=== PATIENT | male | born 1990 | race Hispanic/Latino ===

== ENCOUNTER 2020-08-25 15:41 | Emergency (ER) | payer OTHER ==
--- NOTE | 2020-08-25 17:17 | EDPHYS ---
Physician Documentation [facility] Name: Erick Lange Age: 30 yrs Sex: Male : 1990 Arrival Date: 08/25/2020 Time: 15:42 Bed 20 Private MD: ED Physician Kvng Purcell HPI: 08/25 17:43 This 30 yrs old Male presents to ER via Wheelchair with complaints of Knee tw4 Injury. 17:43 The patient presents with decreased range of motion, a deformity, an injury. The tw4 complaints affect the right knee. Context: The problem was sustained at home. Onset: The symptoms/episode began/occurred today. Modifying factors: The symptoms are alleviated by nothing. the symptoms are aggravated by nothing. The patient has not experienced similar symptoms in the past. Historical: - Allergies: 16:05 No Known Allergies; ca1 - Home Meds: 16:05 None [Active]; ca1 - PMHx: 16:05 None; ca1 - PSHx: 16:05 None; ca1 - Immunization history:: Client reports receiving the 2nd dose of the Covid vaccine, Client reports receiving the 1st dose of the Covid vaccine, Flu vaccine is up to date. - Social history:: Smoking status: Patient denies any tobacco usage or history of. ROS: 17:43 Constitutional: Negative for fever, chills, and weight loss, Eyes: Negative for injury, tw4 pain, redness, and discharge, Cardiovascular: Negative for chest pain, palpitations, and edema, Respiratory: Negative for shortness of breath, cough, wheezing, and pleuritic chest pain, Abdomen/GI: Negative for abdominal pain, nausea, vomiting, diarrhea, and constipation, Back: Negative for injury and pain. 17:43 MS/extremity: Positive for injury or acute deformity, decreased range of motion, deformity, pain, swelling, tenderness, Negative for abrasion, bite, contusion, ecchymosis, erythema, laceration, paresthesias. Exam: 17:43 Constitutional: This is a well developed, well nourished patient who is awake, alert, tw4 and in no acute distress. Head/Face: Normocephalic, atraumatic. Chest/axilla: Normal chest wall appearance and motion. Nontender with no deformity. No lesions are appreciated. Cardiovascular: Regular rate and rhythm with a normal S1 and S2. No gallops, murmurs, or rubs. Normal PMI, no JVD. No pulse deficits. Respiratory: Lungs have equal breath sounds bilaterally, clear to auscultation and percussion. No rales, rhonchi or wheezes noted. No increased work of breathing, no retractions or nasal flaring. Abdomen/GI: Soft, non-tender, with normal bowel sounds. No distension or tympany. No guarding or rebound. No evidence of tenderness throughout. Back: No spinal tenderness. No costovertebral tenderness. Full range of motion. 17:43 Musculoskeletal/extremity: Extremities: noted in the right knee: decreased ROM, deformity, pain, ROM: limited active range of motion due to pain, in the right knee, limited passive range of motion due to pain, in the right knee. Vital Signs: 16:04 BP 146 / 86; Pulse 54; Resp 18 S; Temp 98.2(TE); Pulse Ox 98% on R/A; Weight 106.59 kg ca1 (R); Height 5 ft. 5 in. (165.10 cm) (R); Pain 4/10; 17:05 BP 138 / 89; Pulse 66; Resp 17; Pulse Ox 99% ; rb3 16:04 Body Mass Index 39.11 (106.59 kg, 165.10 cm) ca1 MDM: 17:16 Patient medically screened. tw4 08/25 16:09 Order name: Knee Right 3 View XRAY; Complete Time: 17:28 tw4 08/25 17:37 Order name: Knee Immobilizer; Complete Time: 17:48 em1 Administered Medications: 17:40 Drug: Empire (HYDROcodone-acetaminophen) 5 mg-325 mg 1 tabs Route: PO; rb3 17:48 Follow up: Response: Medication administered at discharge. rb3 Disposition Summary: 08/25/20 17:16 Discharge Ordered Location: Home tw4 Problem: new tw4 Symptoms: have improved tw4 Condition: Stable tw4 Diagnosis - Sprain of other specified parts of knee tw4 - Patellar tendon rupture tw4 Followup: tw4 - With: Private Physician - When: Upon discharge from the Emergency Department - Reason: Recheck today's complaints, Continuance of care, Re-evaluation by your physician Followup: tw4 - With: Marcos Wells MD - When: Upon discharge from the Emergency Department - Reason: Recheck today's complaints, Continuance of care, Re-evaluation by your physician Followup: tw4 - With: Himanshu Murray MD - When: Upon discharge from the Emergency Department - Reason: Recheck today's complaints, Continuance of care, Re-evaluation by your physician Followup: tw4 - With: Hernandez Fuller MD - When: Upon discharge from the Emergency Department - Reason: Recheck today's complaints, Continuance of care, Re-evaluation by your physician Discharge Instructions: - Discharge Summary Sheet tw4 - Knee Sprain, Adult tw4 - Patellar Tendon Tear tw4 Forms: - Medication Reconciliation Form tw4 - Thank You Letter tw4 - Antibiotic Education tw4 - Prescription Opioid Use tw4 Prescriptions: - Ibuprofen 800 mg Oral Tablet - take 1 tablet by ORAL route every 12 hours As needed take with food; 20 tablet; tw4 Refills: 0, Product Selection Permitted - Tramadol 50 mg Oral Tablet - take 1 tablet by ORAL route every 8 hours as needed; 12 tablet; Refills: 0, tw4 Product Selection Permitted Signatures: Dispatcher [employer] Erick Gomez em1 Kvng Purcell MD MD tw4 Cecilia Real RN RN Feli Quick RN RN rb3 Corrections: (The following items were deleted from the chart) 17:48 17:38 Crutches ordered. em1 rb3
--- NOTE | 2020-08-25 17:17 | ER ---
Nurse's Notes [facility] Name: Erick Lange Age: 30 yrs Sex: Male : 1990 Arrival Date: 08/25/2020 Time: 15:42 Bed 20 Private MD: Diagnosis: Sprain of other specified parts of knee;Patellar tendon rupture Presentation: 08/25 16:04 Chief complaint: Patient states: fell off 4 steps down, I feel like I dislocated my R ca1 knee. Happened an hour [employer]. Coronavirus screen: Client denies travel out of the [place] in the last 14 days. At this time, the client does not indicate any symptoms associated with coronavirus-19. Ebola Screen: Patient negative for fever greater than or equal to 101.5 degrees Fahrenheit, and additional compatible Ebola Virus Disease symptoms Patient denies exposure to infectious person. Patient denies travel to an Ebola-affected area in the 21 days before illness onset. No symptoms or risks identified at this time. Initial Sepsis Screen: Does the patient meet any 2 criteria? No. Patient's initial sepsis screen is negative. Does the patient have a suspected source of infection? No. Patient's initial sepsis screen is negative. Risk Assessment: Do you want to hurt yourself or someone else? Patient reports no desire to harm self or others. Onset of symptoms was August 25, 2020. 16:04 Method Of Arrival: Wheelchair ca1 16:04 Acuity: RODRI 4 ca1 Historical: - Allergies: 16:05 No Known Allergies; ca1 - Home Meds: 16:05 None [Active]; ca1 - PMHx: 16:05 None; ca1 - PSHx: 16:05 None; ca1 - Immunization history:: Client reports receiving the 2nd dose of the Covid vaccine, Client reports receiving the 1st dose of the Covid vaccine, Flu vaccine is up to date. - Social history:: Smoking status: Patient denies any tobacco usage or history of. Screenin:08 Abuse screen: Denies threats or abuse. Nutritional screening: No deficits noted. rb3 Tuberculosis screening: No symptoms or risk factors identified. Fall Risk Fall in past 12 months (25 points). No secondary diagnosis (0 pts). IV access (20 points). Ambulatory Aid- Crutches/Cane/Walker (15 pts). Gait- Impaired (20 pts.). Mental Status- Oriented to own ability (0 pts). Total Harden Fall Scale indicates High Risk Score (45 or more points). Fall prevention measures have been instituted. Side Rails Up X 2 Placed Close to Nursing Station Frequent Obs/Assessments Occuring Family Present and informed to notify staff if the need to leave the bedside As available patient and family educated on Fall Prevention Program and Strategies. Assessment: 16:08 General: Appears in no apparent distress. Behavior is calm, cooperative. Pain: rb3 Complains of pain in right knee Pain currently is 7 out of 10 on a pain scale. Pain began 1 hour ago. Neuro: Level of Consciousness is awake, alert, obeys commands, Oriented to person, place, time, situation. Cardiovascular: Patient's skin is warm and dry. Respiratory: Airway is patent Respiratory effort is even, unlabored, Respiratory pattern is regular, symmetrical. GI: No signs and/or symptoms were reported involving the gastrointestinal system. : No signs and/or symptoms were reported regarding the genitourinary system. Musculoskeletal: Range of motion: limited in right knee. 17:00 Reassessment: Patient appears in no apparent distress at this time. No changes from rb3 previously documented assessment. 17:45 Reassessment: Patient appears in no apparent distress at this time. Patient and/or rb3 family updated on plan of care and expected duration. Pain level reassessed. Patient is alert, oriented x 3, equal unlabored respirations, skin warm/dry/pink. Vital Signs: 16:04 BP 146 / 86; Pulse 54; Resp 18 S; Temp 98.2(TE); Pulse Ox 98% on R/A; Weight 106.59 kg ca1 (R); Height 5 ft. 5 in. (165.10 cm) (R); Pain 4/10; 17:05 BP 138 / 89; Pulse 66; Resp 17; Pulse Ox 99% ; rb3 16:04 Body Mass Index 39.11 (106.59 kg, 165.10 cm) ca1 ED Course: 15:42 Patient arrived in ED. as 16:05 Triage completed. ca1 16:05 Arm band placed on right wrist. ca1 16:08 Kvng Purcell MD is Attending Physician. tw4 16:08 Patient has correct armband on for positive identification. Bed in low position. Call rb3 light in reach. Side rails up X 1. Pulse ox on. NIBP on. 16:17 Feli Oseguera, RN is Primary Nurse. rb3 16:36 Knee Right 3 View XRAY In Process Unspecified. EDMS 17:31 Marcos Wells MD is Referral Physician. tw4 17:31 Himanshu Murray MD is Referral Physician. tw4 17:31 Hernandez Fuller MD is Referral Physician. tw4 17:49 No provider procedures requiring assistance completed. Patient did not have IV access rb3 during this emergency room visit. Administered Medications: 17:40 Drug: [place] (HYDROcodone-acetaminophen) 5 mg-325 mg 1 tabs Route: PO; rb3 17:48 Follow up: Response: Medication administered at discharge. rb3 Outcome: 17:16 Discharge ordered by . tw4 17:49 Patient left the ED. rb3 17:49 Discharged to home via wheelchair, with family. rb3 17:49 Condition: stable 17:49 Discharge instructions given to patient, Instructed on discharge instructions, follow up and referral plans. medication usage, Demonstrated understanding of instructions, follow-up care, medications, Prescriptions given X 3. Signatures: Dispatcher [employer] EDMS Karine Lopez Terrence, MD MD tw4 Cecilia Real RN RN ca1 Feli Oseguera, NOEMI RN rb3
--- NOTE | 2020-08-25 17:26 | RAD REPORT ---
EXAM DESCRIPTION: RAD - Knee Right 3 View - 08/25/2020 4:36 pm CLINICAL HISTORY: Right knee pain status post injury FINDINGS: No fracture is visualized. The patella is high riding which may indicate an injury to the patellar tendon. If clinically indicat ed further evaluation with MRI could be obtained
[2020-08-25 17:53] VITALS: BP 146/86; TEMP 98.2; O2SAT 98
[2020-08-25] MEDS ORDERED: HYDROCODONE/APAP 5/325 MG TAB ONE (18:01)
== END 2020-08-25 17:49 | disposition home or self-care (01) ==
LOC: ER 15:41
DX: S76.111A Strain of right quadriceps muscle, fascia and tendon, initial encounter (principal); S83.8X1A Sprain of other specified parts of right knee, initial encounter; W10.9XXA Fall (on) (from) unspecified stairs and steps, initial encounter; Y92.009 Unspecified place in unspecified non-institutional (private) residence as the place of occurrence of the external cause
CPT/HCPCS: 99284